=== PATIENT | female | born 1995 | race Caucasian/White ===

== ENCOUNTER 2016-05-29 23:02 | Emergency (ER) | payer BC ==
[~2016-05-29 23:02] MED LIST: BIRTH CONTROL PILL; MACRODANTIN 10100 MG PO
[2016-05-29 23:30] LABS: BASOPHILS 0.4 %; BASOPHILS ABSOLUTE 0.04 10/3/uL (0.0-0.16); EOSINOPHILS 1.1 %; EOSINOPHILS ABSOLUTE 0.11 10/3/uL (0.0-0.53); HEMATOCRIT 42.7 % (36.0-48.0); IMMATURE GRANULOCYTES 0.2 %; IMMATURE GRANULOCYTES ABSOLUTE 0.02 10/3/uL (0.0-0.11); LYMPHOCYTES 41.5 %; LYMPHOCYTES ABSOLUTE 4.05 10/3/uL (0.67-4.30); MEAN CORPUS HGB CONC 35.1 g/dL (32.0-36.0); MONOCYTES 8.6 %; MONOCYTES ABSOLUTE 0.84 10/3/uL (0.21-1.20); NEUTROPHILS 48.2 %; NEUTROPHILS ABSOLUTE 4.69 10/3/uL (2.02-8.40); PLATELET COUNT 210 10/3/uL (150-400); RBC DISTRIBUTION WIDTH 12.5 % (12.0-16.0); RED CELL COUNT 4.76 10/6/uL (4.0-5.6); WHITE BLOOD CELLS 9.8 10/3/uL (4.5-10.5)
[2016-05-29 23:31] LABS: MANUAL DIFF NO %; MEAN CORPUSCULAR HEMOGLOB 31.5 pg (26.0-34.0); MEAN CORPUSCULAR VOLUME 89.7 fL (80-100)
[2016-05-29 23:39] LABS: ASCORBIC ACID (UR NOT ORDER) NEG (NEG); BILIRUBIN, URINE NEGATIVE (NEG); ER URINALYSIS TAT 0 Hrs 00 Mins; KETONE, URINE NEGATIVE (NEG); LEUKOCYTE ESTERASE(NOT OR TRACE (NEG); WBC (NOT ORDERED) (RFLEX) 22 (0-5)
[2016-05-29 23:40] LABS: NITRITE (URINE) NEG (NEG)
[2016-05-29 23:43] LABS: A/G RATIO 0.8 (0.7-1.9); ALBUMIN 3.6 G/DL (3.5-5.0); ALKALINE PHOSPHATASE 101 U/L (45-117); BUN (BLOOD UREA NITROGEN) 14 MG/DL (6-23); CHLORIDE, SERUM 109 MMOL/L (96-112); CO2 (CARBON DIOXIDE) 27 MMOL/L (24-34); CREATININE 1.12 MG/DL (0.55-1.02); GFR AFRICAN AMERICAN 81 ML/MIN (>=60); GFR NON AFRICAN AMERICAN 70 ML/MIN (>=60); GLOBULIN 4.4 G/DL (2.5-4.1); GLUCOSE, SERUM 85 MG/DL (60-99); POTASSIUM, SERUM 3.8 MMOL/L (3.5-5.3); SGOT(AST) 65 U/L (5-40); SGPT(ALT) 132 U/L (5-65); SODIUM, SERUM 142 MMOL/L (135-148); TOTAL BILIRUBIN 0.4 MG/DL (0-1.2)
[2016-05-29 23:45] LABS: CALCIUM, SERUM 9.6 MG/DL (8.5-10.4)
== END 2016-05-30 02:30 | disposition home or self-care (01) ==
LOC: ER 23:02
PROVIDERS: Physician Assistant
DX: N30.20 Other chronic cystitis without hematuria (principal); Z79.899 Other long term (current) drug therapy
CPT/HCPCS: 74176; 80053; 81001; 83690; 84703; 85025; 87077; 87086; 87186; 99284